=== PATIENT | female | born 1960 | race Caucasian/White ===

== ENCOUNTER 2016-10-03 11:32 | Emergency (ER) | payer MEDICAID, OTHER ==
[2016-10-03] MEDS ORDERED: NORMAL SALINE 1,000 ML IV PRN ×2 (11:49→13:09)
[2016-10-03] MEDS ORDERED: VANCOMYCIN HCL 1 GM in DEXTROSE 5 % IN WATER 250 ML IV ONE ×2 (11:50)
[2016-10-03] MEDS ORDERED: PIPERACILLIN SODIUM/TAZOBACTAM 3.375 GM VIAL IV ONE (11:51)
--- NOTE | 2016-10-03 11:52 | ERNOTE ---
Chest Pain/Cardiac HPI Date of Service: 10/03/16 Chief Complaint: Chest Pain Time Seen by Provider: 10/03/16 11:35 Source: patient Exam Limitations: no limitations Immunizations: IMMUNIZATION HX Immunizations Up to Date Yes History of Influenza Vaccine Yes Hx Pneumococcal Vaccination Yes Allergies/Adverse Reactions: Allergies No Known Allergies Allergy (Verified 10/03/16 11:51) Home Medications: HOME MEDICATIONS Cetirizine HCl [Zyrtec] 10 mg PO HS 08/16/16 [Last Taken Unknown] Cholecalciferol (Vitamin D3) [Vitamin D3] 2,000 unit PO DAILY 08/16/16 [Last Taken Unknown] Lisinopril [Zestril] 20 mg PO DAILY 08/16/16 [Last Taken Unknown] Albuterol Sulfate [Proair Hfa] 1 puff IH QID PRN 10/03/16 [Last Taken Unknown] Amiodarone HCl [Cordarone] 200 mg PO DAILY 10/03/16 [Last Taken Unknown] Aspirin [Aspirin Enteric Coated] 325 mg PO DAILY 10/03/16 [Last Taken Unknown] Atorvastatin Calcium [Lipitor] 80 mg PO HS 10/03/16 [Last Taken Unknown] Carvedilol [Coreg] 12.5 mg PO BID 10/03/16 [Last Taken Unknown] Clopidogrel Bisulfate [Plavix] 75 mg PO DAILY 10/03/16 [Last Taken Unknown] Fluticasone/Salmeterol [Advair Hfa 115-21 Mcg Inhaler] 12 gm IH BID 10/03/16 [ Last Taken Unknown] Hydrochlorothiazide [Hydrodiuril] 25 mg PO DAILY 10/03/16 [Last Taken Unknown] Spironolactone [Aldactone] 25 mg PO DAILY 10/03/16 [Last Taken Unknown] guaiFENesin [Mucinex] 600 mg PO Q12H 10/03/16 [Last Taken Unknown] oxyCODONE HCL/ACETAMINOPHEN [Percocet 5 MG/325 MG] 1 tab PO Q4H PRN 10/03/16 [ Last Taken Unknown] Narrative: pt s/p multiple cardiac arrests and inferior wall IN in Dec presents from the office with fever, hypotension and R upper chest pain. pt sts that the chest pain is worse with movement and is chronic. She denies any substernal chest pain. She has had a coarse productive cough since 09/25 after discharge from [facility]. Sts that the weakness has been increasing since discharge. Denies melena or hematochezia. pt fell yest, 3 lb weight loss per the office in the past 9 days Date (Duration): 09/25/16 Timing: constant Severity/Quality: moderate, sharp Location: other - R chest Chest Pain Radiation: no radiation Activities at Onset: none Nitro Today/Relief: no nitro taken today Associated Symptoms: Present: cough, shortness of breath, fever/chills Prior Chest Pain/Cardiac Workup: Reports: prior chest pain Prior Treatment: Reports: recently seen - today Review of Systems - Review of Systems Constitutional: Present: fever, weakness, malaise EYE: Present: no symptoms reported ENT: Present: no symptoms reported Respiratory: Present: shortness of breath, cough Cardiology: Present: chest pain - R upper chest Gastrointestinal/Abdominal: Present: eating less Genitourinary: Present: no symptoms reported Musculoskeletal: Present: no symptoms reported Skin: Present: no symptoms reported Neurological: Present: no symptoms reported Endocrine: Present: no symptoms reported Hematologic/Lymphatic: Present: no symptoms reported Psych: Present: no symptoms reported All Other Systems: All systems neg except as marked - Patient's Past Medical History Patient History - Medical: Alcohol Abuse, Other Patient History - Cardiac/Respiratory: Coronary Heart Disease, Hypertension Patient History - Cancer: No Hx of Cancer Patient History - Surgical Procedures: Appendectomy, Other - Family History Mother Family History - Medical: , History Unknown Family History - Cardiac/Respiratory: History Unknown Father Family History - Medical: , No pertinent hx Family History - Cardiac/Respiratory: Myocardial Infarction Brother Family History - Medical: No pertinent hx Family History - Cardiac/Respiratory: Myocardial Infarction - Social History Living Situations: home Alcohol Use: heavy Drug Use: none Physical Exam - Physical Exam General Appearance: Present: alert Eye Exam: Normal inspection: bilateral Ears, Nose, Throat: Present: normal ENT inspection Neck: Present: normal inspection Respiratory: Present: chest tenderness - tenderness to the R chest which reproduces the pain, decreased breath sounds, crackles, wheezing Cardiovascular/Chest: Present: regular rate, rhythm Peripheral Pulses: N=norm/S=strong/W=weak/B=bound/A=absent: Radial (R): Normal, Radial (L): Normal, Dorsalis-pedis (R): Normal, Dorsalis-pedis (L): Normal Gastrointestinal/Abdominal: Present: normal bowel sounds Extremity Exam: Present: normal inspection Neurological Exam: Present: alert, oriented Lymphatic Exam: Present: no adenopathy ED Progress - Results and Orders Patient's Lab Results:: I have reviewed the patient's lab results. - Vital Signs Patient's Vital Signs:: I have reviewed the patient's vital signs. - EKG EKG: NSR, other - TWI II, III, avf, V4, V5 - X-Ray X-Ray #1 X-Ray: chest - no new infiltrate Plan - Plan Plan: Dr. Burroughs came to the ed and ordered additional testing. troponin and BNP both elevated. The troponin may be a factor of the renal insufficiency but the BNP elevation is out of proportion to the renal insufficiency. BP and breathing are stable. pt will be transferred to the ed at [facility]. Spoke with Dr. Carrillo in the ed. Fluid stopped. Departure - Departure Clinical Impression: COPD exacerbation, Bronchitis, Dehydration, moderate, Hypotension, Elevated troponin level Chest pain Qualifiers: Chest pain type: chest pain due to myocardial ischemia Qualified Code(s): I20.9 - Angina pectoris, unspecified Disposition: [facility] Condition: Stable
[2016-10-03 12:15] LABS: Hematocrit 31.9 % (37.0-47.0); Hemoglobin 10.1 gm/dL (12.5-16.0); Mean Cell Volume 99.7 fl (78-100); Mean Corpuscular Hemoglobin 31.6 pg (27-31); Mean Corpuscular Hgb Conc 31.7 g/dl (32-36); Mean Platelet Volume 9.7 fl (6.0-9.5); Platelet Count 222 K/mm3 (150-450); Red Cell Distribution Width 15.7 % (11.5-14.0); White Blood Count 10.2 K/mm3 (4.0-10.5)
[2016-10-03] MEDS ORDERED: PIPERACILLIN SODIUM/TAZOBACTAM 3.375 GM in DEXTROSE 5 % IN WATER 100 ML IV ONE ×2 (12:15)
[2016-10-03 12:32] LABS: Albumin * 2.6 gm/dl (3.4-5.0); BUN/Creatinine Ratio 13.2 (9.0-21.6); Bilirubin, Total 0.3 mg/dL (0.0-1.1); Ca. Corrected For Albumin 9.6 mg/dL (8.4-10.2); Calcium * 8.8 mg/dL (7.9-10.9); Carbon Dioxide 19.2 mmol/L (24-32.6); Potassium 4.2 mmol/L (3.4-4.6); Total Protein 6.4 gm/dL (6.2-8.2)
[2016-10-03 12:45] LABS: Total Cells Counted 100
[2016-10-03] MEDS ORDERED: ALBUTEROL SULFATE/IPRATROPIUM 3 ML NEBU IH ONE (12:51)
[2016-10-03 12:55] LABS: Atypical (Reactive) Lymph 1 % (0-2); Band 8 % (0-2.0); Immature Granulocyte 1 (0-1); Lymphocyte 18 % (20-51); Monocyte 8 % (0-9); Neutrophil 64 % (42-75); Neutrophil # 6.5 K/mm3 (1.3-6.0)
[2016-10-03 12:56] LABS: Platelet Estimate Normal (NORMAL); RBC Morphology Normal (NORMAL)
[2016-10-03 12:57] LABS: Dohle Bodies 2+; Toxic Granulation 4+
[2016-10-03 13:32] LABS: CRP 15.7 mg/dL (0.0-0.9); Troponin I 0.172 ng/ml (0.00-0.10)
[2016-10-03 13:42] VITALS: BP 120/49
== END 2016-10-03 14:54 | disposition short-term general hospital (02) ==
LOC: ER 11:32 → UNDOADMOB 13:18 → MS 13:18 → ER 14:54
DX: J44.1 Chronic obstructive pulmonary disease with (acute) exacerbation (principal); J40 Bronchitis, not specified as acute or chronic; E86.0 Dehydration; I95.9 Hypotension, unspecified; R79.89 Other specified abnormal findings of blood chemistry; I20.9 Angina pectoris, unspecified

== ENCOUNTER 2017-05-31 09:55 | Emergency (ER) | payer OTHER ==
[2017-05-31 10:14] VITALS: BP 184/64
--- NOTE | 2017-05-31 11:46 | ERNOTE ---
Trauma/Assault HPI - Narrative Date of Service: 05/31/17 - General Stated Complaint: FALL Time Seen by Provider: 05/31/17 10:30 Source: patient Exam Limitations: no limitations - Immun/Allergies/Home Medications Immunizations: IMMUNIZATION HX Immunizations Up to Date Yes History of Influenza Vaccine Yes Hx Pneumococcal Vaccination No Allergies/Adverse Reactions: Allergies No Known Allergies Allergy (Verified 05/31/17 10:14) Home Medications: HOME MEDICATIONS Cetirizine HCl [Zyrtec] 10 mg PO HS 08/16/16 [Last Taken Unknown] Cholecalciferol (Vitamin D3) [Vitamin D3] 2,000 unit PO DAILY 08/16/16 [Last Taken Unknown] Atorvastatin Calcium [Lipitor] 80 mg PO HS 10/03/16 [Last Taken Unknown] Carvedilol [Coreg] 3.125 mg PO BID 10/03/16 [Last Taken Unknown] Clopidogrel Bisulfate [Plavix] 75 mg PO DAILY 10/03/16 [Last Taken Unknown] Aspirin 81 mg PO DAILY 05/31/17 [Last Taken Unknown] HYDROcodone/ACETAMINOPHEN [Union 5-325] 1 tab PO Q4H PRN #40 tab 05/31/17 [Last Taken Unknown] Levothyroxine Sodium [Tirosint] 50 mcg PO DAILY 05/31/17 [Last Taken Unknown] Lisinopril 5 mg PO HS 05/31/17 [Last Taken Unknown] Sertraline HCl [Zoloft] 50 mg PO DAILY 05/31/17 [Last Taken Unknown] - History of Present Illness Narrative: patient lost balance and fell on face and right wrist on friday Location Occurred: Reports: street Pain Location: Reports: head, face, upper extremity Method of Injury: Reports: fall Severity: moderate Modifying Factors - (Improves): Reports: rest Modifying Factors - (Worsens): Reports: movement Loss of Consciousness: Reports: no loss of consciousness Associated Symptoms - Trauma: Reports: denies symptoms Review of Systems - Review of Systems Constitutional: Present: no symptoms reported, See HPI EYE: Present: no symptoms reported ENT: Present: See HPI Respiratory: Present: no symptoms reported Cardiology: Present: no symptoms reported Gastrointestinal/Abdominal: Present: no symptoms reported Genitourinary: Present: no symptoms reported Musculoskeletal: Present: joint pain Skin: Present: no symptoms reported Neurological: Present: no symptoms reported Endocrine: Present: no symptoms reported Hematologic/Lymphatic: Present: no symptoms reported Psych: Present: no symptoms reported All Other Systems: All systems neg except as marked - Patient's Past Medical History Patient History - Medical: Alcohol Abuse, Other Patient History - Cardiac/Respiratory: Hypertension, Hyperlipidemia, Myocardial Infarction Patient History - Cancer: No Hx of Cancer Patient History - Surgical Procedures: Appendectomy, Cardiac stent, Other Patient History - Other: None - Family History Mother Family History - Medical: , History Unknown Family History - Cardiac/Respiratory: History Unknown Father Family History - Medical: , No pertinent hx Family History - Cardiac/Respiratory: Myocardial Infarction Brother Family History - Medical: No pertinent hx Family History - Cardiac/Respiratory: Myocardial Infarction - Social History Living Situations: home Abuse History: No History of abuse Psych History: No pertinent hx Smoking Status: Current every day smoker Have you smoked in the past 12 months: Yes Initiate information on Smoking Cessation: No Alcohol Use: heavy Drug Use: none - Immunizations Immunizations Up to Date: Yes Hx Pneumococcal Vaccination: No History of Influenza Vaccine: Yes Physical Exam - Physical Exam General Appearance: Present: alert, moderate distress Head Exam: Present: contusions, ecchymosis, swelling, tenderness Eye Exam: Normal inspection: bilateral, PERRL: bilateral, EOMI: bilateral Ears, Nose, Throat: Present: normal ENT inspection Neck: Present: normal inspection, nontender Respiratory: Present: no respiratory distress, normal breath sounds, no accessory muscle use, chest nontender, lungs clear Cardiovascular/Chest: Present: regular rate, rhythm, no murmur, normal peripheral pulses Peripheral Pulses: N=norm/S=strong/W=weak/B=bound/A=absent: Carotid (R): Normal , Carotid (L): Normal, Radial (R): Normal, Radial (L): Normal, Femoral (R): Normal, Femoral (L): Normal, Dorsalis-pedis (R): Normal, Dorsalis-pedis (L): Normal Gastrointestinal/Abdominal: Present: normal bowel sounds, nontender, nondistended, soft, no organomegaly Back Exam: Present: normal inspection, normal range of motion, no CVA tenderness , no vertebral tenderness Extremity Exam: Present: normal inspection, normal range of motion, no edema Neurological Exam: Present: alert, oriented, normal mood/affect, no motor/ sensory deficits DTR: N=norm/NB=norm/brisk/A=abs/DD=dull/dimin/HC=hyperactive: Bicep (R): Normal , Bicep (L): Normal, Tricep (R): Normal, Tricep (L): Normal, Knee (R): Normal, Knee (L): Normal, Ankle (R): Normal, Ankle (L): Normal Skin Exam: Present: normal color, warm/dry Lymphatic Exam: Present: no adenopathy - C-Spine cleared by: Neg history & exam ED Progress - Vital Signs Vital Signs: Vital Signs 05/31/17 10:10 Temperature 36.2 C L Pulse Rate 60 Respiratory 14 Rate Blood Pressure 184/64 O2 Sat by Pulse 98 Oximetry - X-Ray X-Ray #1 X-Ray: wrist - distal radius fracture with angulation, ulnar styloid fracture - CT/Ultrasound CT/Ultrasound Narrative: ct of head and neck reveal no abnormality - Progress/Reassessment Chief Complaint: Fall Procedures Date and Time: ocl placed patient tolerated it well Departure Clinical Impression: Fracture of wrist - Departure Disposition: Home self-care Condition: Fair Instructions: Colles Fracture Additional Instructions: call dr hernandez office on friday for appointment Referrals: Irma Burroughs MD [Primary Care Provider] - Prescriptions: HYDROcodone/ACETAMINOPHEN [Union 5-325] 1 tab PO Q4H PRN #40 tab PRN Reason: Pain
[2017-05-31] MEDS ORDERED: DIPHTH,PERTUSS(ACELL),TET VAC 0.5 ML VIAL IM ONE ×2 (11:48→11:49)
== END 2017-05-31 11:59 | disposition home or self-care (01) ==
LOC: ER 09:55
PROC: 2W3CX1Z Immobilization of Right Lower Arm using Splint (ICD-10-PCS; principal; 2017-05-31)
DX: M84.433A Pathological fracture, right radius, initial encounter for fracture (principal); M84.431A Pathological fracture, right ulna, initial encounter for fracture; W18.30XA Fall on same level, unspecified, initial encounter; Y93.9 Activity, unspecified; Y92.410 Unspecified street and highway as the place of occurrence of the external cause; Y99.9 Unspecified external cause status; I10 Essential (primary) hypertension; E78.5 Hyperlipidemia, unspecified

== ENCOUNTER 2020-03-12 08:38 | Inpatient (IN) ==
[2020-03-12] MEDS ORDERED: PANTOPRAZOLE SODIUM 40 MG/100 ML PIGGYBACK IV ONE (08:47)
[2020-03-12 09:05] LABS: Mean Cell Volume 109.1 fl (78-100); Mean Corpuscular Hemoglobin 34.4 pg (27-31); Mean Corpuscular Hgb Conc 31.5 g/dl (32-36); Mean Platelet Volume 10.3 fl (8-12.5); NRBC# 0.1 k/mm3 (0-1); Neutrophil # 6.1 K/mm3 (1.3-6.0); Neutrophil % 68.6 % (42-75.0); Platelet Count 119 K/mm3 (150-450); Red Blood Count 1.54 M/mm3 (4.2-5.4); White Blood Count 8.9 K/mm3 (4.0-10.5)
[2020-03-12 09:08] LABS: Hemoglobin 5.3 gm/dL (12.5-16.0)
[2020-03-12 09:09] LABS: Hematocrit 16.8 % (37.0-47.0)
[2020-03-12 09:14] LABS: Prothrombin Time (Patient) 13.8 Seconds (9.1-10.7)
--- NOTE | 2020-03-12 09:14 | ERNOTE ---
GI Bleeding/Rectal Pain ER Presenting Symptoms: dark/tarry stools Time Seen by Provider: 03/12/20 08:41 Source: patient Exam Limitations: no limitations Immunizations: IMMUNIZATION HX Immunizations Up to Date Yes History of Influenza Vaccine Yes Hx Pneumococcal Vaccination No Allergies/Adverse Reactions: Allergies No Known Allergies Allergy (Verified 05/03/19 20:14) Home Medications: HOME MEDICATIONS Atorvastatin Calcium [Lipitor] 80 mg PO HS 10/03/16 [Last Taken Unknown] Carvedilol [Coreg] 3.125 mg PO BID 10/03/16 [Last Taken Unknown] Clopidogrel Bisulfate [Plavix] 75 mg PO DAILY 10/03/16 [Last Taken Unknown] Aspirin 81 mg PO DAILY 05/31/17 [Last Taken Unknown] furosemide 20 mg tablet 20 mg PO DAILY 07/27/18 [Last Taken Unknown] lisinopril 10 mg tablet 10 mg PO DAILY 07/31/18 [Last Taken Unknown] Denosumab [Prolia] 60 mg SC Q180D #1 disp.syrin 08/06/18 [Last Taken Unknown] cholecalciferol (vitamin D3) 50 mcg (2,000 unit) tablet 2,000 unit PO DAILY #0.1 tab 08/07/18 [Last Taken Unknown] albuterol sulfate 90 mcg/actuation aerosol inhaler 2 puff IH Q6H PRN #8.5 g 12/22/18 [Last Taken Unknown] levothyroxine 25 mcg tablet See Rx Instructions .ROUTE .COMPLEX #30 tablet 10/25/19 [Last Taken Unknown] sertraline 50 mg tablet See Rx Instructions .ROUTE .COMPLEX #30 tablet 10/25/19 [Last Taken Unknown] Narrative: Patient states that she has been having bloody diarrhea for about a 2 weeks, stools are black, denies any clots, yesterday she went to the bathroom 20 times. She is also been vomiting multiple times a day for about 3 to 4 days, denies any blood in the vomit, she denies any abdominal pain. Patient past medical history is significant for an DE with cardiac arrest in 2015, she was treated with a stent and has been on aspirin and Plavix since. She states that she also started menstruating again after being 15 years postmenopausal, states that she is menstruating like she was having a period. She has not seen her PCP in about a year but states that she is continuing to take her medications. Today she called EMS as she has become increasingly lightheaded and dizzy Timing: constant Nausea/Vomiting: Present: clear Abdominal Pain: Present: none Associated Symptoms: Reports: black stools, tarry stools, diarrhea Prior Treament: Denies: recently seen, similar symptoms before Review of Systems - Review of Systems Constitutional: Present: weakness, fatigue, malaise, weight loss - lost 15+kg per chart. Absent: recent illness, fever, chills ENT: Absent: nose congestion, sore throat Respiratory: Absent: shortness of breath, cough Cardiology: Absent: chest pain Gastrointestinal/Abdominal: Present: See HPI, nausea, vomiting, diarrhea Genitourinary: Absent: frequency, dysuria Musculoskeletal: Absent: back pain Neurological: Present: numbness - right leg for months Medical History (Last Reviewed 03/12/20 @ 09:12 by Bhavani Salcido MD) Cough (Acute) Newly recognized heart murmur (Acute) Alcoholism (Chronic) claims to drink about 3-4 beers per week. Current every day smoker (Chronic) Smokes 1/2 pack per day Hypothyroidism (acquired) (Chronic) Peripheral arterial disease (Chronic) Having intermittent claudication with walking Osteoporosis of forearm (Chronic) Has had a fracture of the R. humerus and a fracture of the R. forearm Ischemic cardiomyopathy (Resolved) Onset Date: Unknown Hypothyroidism (Chronic) Onset Date: Unknown Hypertension (Chronic) Onset Date: Unknown Fracture, humerus closed (Resolved) Onset Date: Unknown Distal radial fracture (Resolved) Onset Date: Unknown CAD (coronary artery disease) (Chronic) Onset Date: Unknown Carotid stenosis (Chronic) Onset Date: Unknown Hypertension (Acute) H/O echocardiogram ef 40-45% 10/04/2016 Surgical History: Surgical History (Last Reviewed 03/12/20 @ 09:12 by Bhavani Salcido MD) History of cardioversion (Resolved) Onset Date: Unknown H/O cardiac catheterization (Resolved) Onset Date: Unknown History of appendectomy (Resolved) Onset Date: Unknown History of bilateral oophorectomy Onset Date: Unknown Hx of heart artery stent Onset Date: Unknown S/P ORIF (open reduction internal fixation) fracture Onset Date: Unknown Family History: Family History (Last Reviewed 03/12/20 @ 09:14 by Ping Malhotra RN) Father , age 43 Myocardial infarction Mother unknown Brother , age 60 Myocardial infarction Social History: (Last Updated 03/12/20 @ 09:13 by Bhavani Salcido MD) Social History: Marital status: Single current occupational status: unemployed Highest education level completed: high school graduate Service: No Tobacco: Smoking Status: Current every day smoker Smoking cigarettes per day: 10 Alcohol: alcohol intake: current Alcohol type: beer alcohol intake frequency: 0-2 drinks per day details: 12 pack per week Substance Use: substance use type: does not use Dietary Habits: caffeine: Yes Physical Exam - Physical Exam General Appearance: Present: wd/wn, alert, no apparent distress, thin Head Exam: Present: normal inspection Eye Exam: Normal inspection: bilateral, PERRL: bilateral Ears, Nose, Throat: Present: normal pharynx, dry mucous membranes Respiratory: Present: no respiratory distress, no accessory muscle use, decreased breath sounds, wheezing - occoasional Cardiovascular/Chest: Present: regular rate, rhythm Gastrointestinal/Abdominal: Present: normal bowel sounds, nondistended, soft, tenderness - minimal epigastric, other - suprapubic fullness Rectal Exam: Present: nontender, normal rectal tone, black stool Pelvic Exam: Present: other - patient is postmenopausal and I was only able to insert one finger for bimanual exam, limited exam of utererus. Absent: active bleeding, discharge Extremity Exam: Present: normal inspection Neurological Exam: Present: alert, oriented, normal mood/affect Skin Exam: Present: warm/dry, pallor Progress - Results and Orders Patient's Lab Results:: I have reviewed the patient's lab results. - Vital Signs Patient's Vital Signs:: I have reviewed the patient's vital signs. Vital Signs: Vital Signs 03/12/20 08:53 Temperature 36.0 C Pulse Rate 81 Respiratory Rate 28 H Blood Pressure 124/63 O2 Sat by Pulse Oximetry 100 - X-Ray X-Ray #1 X-Ray: abdomen - non specific bowel gas pattern Interpretation: Interp. by me, Reviewed by me - CT/Ultrasound CT/Ultrasound Narrative: CT abdomen/pelvis: IMPRESSION:Mild diffuse colonic wall thickening; question colitis. No pneumatosis or portal venous gas. No free air. No abscess. No bowel obstruction. Also, question left pyelonephritis. Additional findings and comments are as above. - Progress/Reassessment Chief Complaint: GI Bleed Progress Note-Subjective: 03/12/20 10:42 patient tolerating po contrast 03/12/20 12:[address] result with patient offered admission, patient agreed 03/12/20 12:27 discussed with faith Rodriguez to to admit for lower GI bleed will assess after second unit of RBC for need of further transfusion Departure Clinical Impression: GI bleed Qualifiers: GI bleed type/associated pathology: unspecified gastrointestinal hemorrhage type Qualified Code(s): K92.2 - Gastrointestinal hemorrhage, unspecified - Departure Disposition: Still a patient Condition: Stable Referrals: Romeo Damon DO [Primary Care Provider] -
[2020-03-12 09:17] LABS: Albumin * 3.1 gm/dl (3.4-5.0); Anion Gap 24.9 mmol/L (6.8-13.8); BUN/Creatinine Ratio 17.3 (9.0-21.6); Bilirubin, Total 0.3 mg/dL (0.0-1.1); Ca. Corrected For Albumin 8.5 mg/dL (8.4-10.2); Calcium * 8.1 mg/dL (7.9-10.9); Carbon Dioxide 16.3 mmol/L (24-32.6); Potassium 4.2 mmol/L (3.4-4.6); Total Protein 6.1 gm/dL (6.2-8.2)
[2020-03-12] MEDS ORDERED: NORMAL SALINE 1,000 ML IV ONE (09:17)
[2020-03-12 09:18] LABS: INR 1.41 INR (0.92-1.08); Partial Thrombolplastin Time 21.3 Seconds (24-32)
[2020-03-12] MEDS ORDERED: ONDANSETRON HCL/PF 2 MG/ML VIAL ONE (09:22)
[2020-03-12] MEDS ORDERED: ONDANSETRON HCL/PF 2 MG/ML VIAL IV ONE (09:22)
[2020-03-12 09:41] LABS: Urine Appearance Clear (CLEAR); Urine Bilirubin Negative (NEGATIVE); Urine Blood Negative /ul (NEGATIVE); Urine Color Yellow; Urine Ketone Negative (NEGATIVE); Urine Protein Negative (NEGATIVE); Urine pH 5.5 pH (5.0-7.0)
[2020-03-12 09:42] LABS: Urine Bacteria None Seen; Urine Nitrite Negative (NEGATIVE); Urine RBC None Seen /hpf (0-5); Urine Urobilinogen Normal (NORMAL); Urine WBC None Seen /hpf (0-5)
[2020-03-12] MEDS ORDERED: DIATRIZOATE MEGLUMINE, SODIUM 30 ML BTL PO ONE (09:54)
[2020-03-12] MEDS ORDERED: HYDROmorphone HCL 1 MG/ML DISP.SYRIN IV ONE (11:55)
[2020-03-12] MEDS ORDERED: ACETAMINOPHEN 325 MG TABLET PO PRN (14:44)
[2020-03-12] MEDS ORDERED: HYDROmorphone HCL 1 MG/ML DISP.SYRIN IV PRN (14:45)
[2020-03-12] MEDS ORDERED: ONDANSETRON HCL/PF 2 MG/ML VIAL IV PRN (14:50)
[2020-03-12] MEDS ORDERED: ALBUTEROL SULFATE 2.5 MG/0.5 ML VIAL.NEB IH PRN (14:50)
[2020-03-12] MEDS ORDERED: METHYLPREDNISOLONE SOD SUCC/PF 40 MG/ML VIAL IV SCH (15:00)
[2020-03-12] MEDS ORDERED: CARVEDILOL 12.5 MG TABLET PO SCH (15:00)
[2020-03-12] MEDS ORDERED: NICOTINE 14 MG PATC TD SCH (15:00)
[2020-03-12] MEDS: PANTOPRAZOLE SODIUM 40 MG in NORMAL SALINE 100 ML IV SCH (15:25)
[2020-03-12] MEDS ORDERED: LORazepam 1 MG TABLET PO PRN (15:30)
[2020-03-12] MEDS: CARVEDILOL 3.125 MG TABLET PO SCH ×2 (15:32→20:43)
[2020-03-12] MEDS: LEVOTHYROXINE SODIUM 25 MCG TABLET PO SCH (15:32)
[2020-03-12] MEDS: SERTRALINE HCL 50 MG TABLET PO SCH (15:32)
[2020-03-12] MEDS: METHYLPREDNISOLONE SOD SUCC/PF 125 MG/2 ML VIAL IV SCH ×2 (15:33→20:44)
--- NOTE | 2020-03-12 15:35 | HP ---
Chief Complaint - Chief Complaint Date of Service: 03/12/20 Time of Service: 15:07 Chief Complaint: I have diarrhea, nausea, and vomiting History of Present Illness: 59-year-old female with past medical history of alcoholism, coronary artery disease, with old NM with stent placement, nicotine dependence, hypertension, hypothyroidism, peripheral artery disease, osteoporosis, was evaluated in the ER due to recurrent diarrhea and melena of 2 weeks duration accompanied by nausea and vomiting that started 2 to 3 days ago. Patient is currently on aspirin and Plavix for her coronary artery disease and she reports 2 weeks ago she started having dark watery diarrhea, she then started noticing fresh red blood coming from her rectum which she initially thought was a menstrual bleed. However the patient has been postmenopausal for more than 15 years so rectal bleeding is more likely. Subsequently the patient weak and pale and lack energy. She 3 days ago she developed intense nausea and started vomiting. This morning her symptoms became so severe that she decided to come to the ER. Upon questioning the patient admits to consuming alcohol and is also a current smoker of half a pack of cigarettes a day. Labs done in the ER demonstrated elevated liver enzymes a positive stool occult and elevated alcohol levels. She also has a hemoglobin of 5.3 and is extremely weak and pale. Abdominal CT was obtained and it showed diffuse colonic inflammation indicating a colitis. On observation the patient appears disheveled and malnourished she also has poor hygiene. Medical History (Last Reviewed 03/12/20 @ 14:22 by Jennifer Diaz RN) Cough (Acute) Newly recognized heart murmur (Acute) Alcoholism (Chronic) claims to drink about 3-4 beers per week. Current every day smoker (Chronic) Smokes 1/2 pack per day Hypothyroidism (acquired) (Chronic) Peripheral arterial disease (Chronic) Having intermittent claudication with walking Osteoporosis of forearm (Chronic) Has had a fracture of the R. humerus and a fracture of the R. forearm Ischemic cardiomyopathy (Resolved) Onset Date: Unknown Hypothyroidism (Chronic) Onset Date: Unknown Hypertension (Chronic) Onset Date: Unknown Fracture, humerus closed (Resolved) Onset Date: Unknown Distal radial fracture (Resolved) Onset Date: Unknown CAD (coronary artery disease) (Chronic) Onset Date: Unknown Carotid stenosis (Chronic) Onset Date: Unknown Hypertension (Acute) H/O echocardiogram ef 40-45% 10/04/2016 Surgical History: Surgical History (Last Reviewed 03/12/20 @ 14:22 by Jennifer Diaz RN) History of cardioversion (Resolved) Onset Date: Unknown H/O cardiac catheterization (Resolved) Onset Date: Unknown History of appendectomy (Resolved) Onset Date: Unknown History of bilateral oophorectomy Onset Date: Unknown Hx of heart artery stent Onset Date: Unknown S/P ORIF (open reduction internal fixation) fracture Onset Date: Unknown Family History: Family History (Last Reviewed 03/12/20 @ 14:22 by Jennifer Diaz RN) Father , age 43 Myocardial infarction Mother unknown Brother , age 60 Myocardial infarction Social History: (Last Reviewed 03/12/20 @ 14:22 by Jennifer Diaz RN) Social History: Marital status: Single current occupational status: unemployed Highest education level completed: high school graduate Service: No Tobacco: Smoking Status: Current every day smoker Smoking cigarettes per day: 10 Alcohol: alcohol intake: current Alcohol type: beer alcohol intake frequency: 0-2 drinks per day details: 12 pack per week Substance Use: substance use type: does not use Dietary Habits: caffeine: Yes Peds Patient Hx - Developmental: No Pertinent Hx Peds Patient Hx - Medical: No Pertinent Hx Peds Patient Hx - Cardiac/Respiratory: No Pertinent Hx Peds Patient Hx - Surgical: No Surgical History Patient History - Cancer: No Hx of Cancer Review Of Systems (GEN) - Review of Systems Generalized/Overall Review: Present: Weakness EENTM: Present: No Symptoms Reported Respiratory: Present: No Symptoms Reported Cardiac: Present: No Symptoms Reported Abdominal: Present: Nausea, Vomiting, Diarrhea, Melena, Bright blood from rectum Genitourinary: Present: No Symptoms Reported Musculoskeletal: Present: Other - Numbness and tingling of right lower extremity. Neurological: Present: Numbness, Tingling, Pre-existing Deficit Skin: Present: Change in Color Endocrine: Present: No Symptoms Reported Immunizations: IMMUNIZATION HX Immunizations Up to Date Yes History of Influenza Vaccine Yes Hx Pneumococcal Vaccination No Allergies/Adverse Reactions: Allergies Allergy/AdvReac Type Severity Reaction Status Date / Time No Known Allergies Allergy Verified 03/12/20 14:22 Home Medications: HOME MEDICATIONS Atorvastatin Calcium [Lipitor] 80 mg PO HS 10/03/16 [Last Taken Unknown] Carvedilol [Coreg] 3.125 mg PO BID 10/03/16 [Last Taken Unknown] Clopidogrel Bisulfate [Plavix] 75 mg PO DAILY 10/03/16 [Last Taken Unknown] Aspirin 81 mg PO DAILY 05/31/17 [Last Taken Unknown] furosemide 20 mg tablet 20 mg PO DAILY 07/27/18 [Last Taken Unknown] lisinopril 10 mg tablet 10 mg PO DAILY 07/31/18 [Last Taken Unknown] Denosumab [Prolia] 60 mg SC Q180D #1 disp.syrin 08/06/18 [Last Taken Unknown] cholecalciferol (vitamin D3) 50 mcg (2,000 unit) tablet 2,000 unit PO DAILY #0.1 tab 08/07/18 [Last Taken Unknown] albuterol sulfate 90 mcg/actuation aerosol inhaler 2 puff IH Q6H PRN #8.5 g 12/22/18 [Last Taken Unknown] levothyroxine 25 mcg tablet See Rx Instructions .ROUTE .COMPLEX #30 tablet 10/25/19 [Last Taken Unknown] sertraline 50 mg tablet See Rx Instructions .ROUTE .COMPLEX #30 tablet 10/25/19 [Last Taken Unknown] Exam - Exam Vital Signs: Vital Signs - Last Taken Temp 36.7 C 03/12/20 14:22 Pulse 71 03/12/20 14:22 Resp 18 03/12/20 14:22 BP 114/67 03/12/20 14:22 Pulse Ox 100 03/12/20 14:22 Constitutional: Present: Alert, Oriented x3, Cooperative, Well developed, No distress, Other - Patient appears malnourished, Elderly, Thin and frail ENT Exam: Present: normal ENT inspection, hearing grossly normal, pharynx normal, TMs normal Eye Exam: bilateral eye: normal inspection, PERRL, EOMI Neck: Present: non-tender, full range of motion, supple, normal inspection, trachea midline Back Exam: Present: normal inspection, no CVA tenderness, no vertebral tenderness Breasts: Present: Exam deferred Respiratory: Present: chest non-tender, lungs clear, normal breath sounds, no respiratory distress Cardiovascular/Chest: Present: normal peripheral pulses, regular rate, rhythm, no chest tenderness, no edema, no gallop, no JVD, no murmur, no rub Peripheral Pulses: carotid (R): 3+, carotid (L): 3+, femoral (R): 3+, femoral (L): 3+, dorsalis-pedis (R): 2+, dorsalis-pedis (L): 0 Abdomen: Present: Normal bowel sounds, soft, nontender, nondistended, no rebound tenderness, no hepatospenomegaly, no masses /Rectal: Present: Exam deferred Extremity: Present: normal range of motion, non-tender, no pedal edema, no calf tenderness, pelvis stable, other - Right lower extremity is cold to touch but pulses are intact Skin Exam: Present: pallor Lymphatic: Present: no adenopathy Neurologic: Present: die try out worker stamping II-XII nml as tested, no motor/sensory deficits, alert, oriented x 3, depressed affect Appearance: Present: appropriate appearance, appropriate insight, disheveled Eye contact: Present: cooperative, good eye contact, normal speech Thoughts: Present: normal thought pattern, no apparent hallucination Diagnostic Studies: Abnormal Lab Results 03/12/20 03/12/20 03/12/20 Range/Units 08:55 08:55 08:55 RBC 1.54 L (4.2-5.4) M/mm3 Hgb 5.3 L* (12.5-16.0) gm/dL Hct 16.8 L* (37.0-47.0) % MCV 109.1 H (78-100) fl MCH 34.4 H (27-31) pg MCHC 31.5 L (32-36) g/dl RDW 17.0 H (11.5-14.0) % Plt Count 119 L (150-450) K/mm3 Lymphocytes % 19.4 L (20-51) % Monocytes % 11.6 H (0.0-9) % Neutrophils # 6.1 H (1.3-6.0) K/mm3 PT 13.8 H (9.1-10.7) Seconds INR (Anticoag Therapy) 1.41 H (0.92-1.08) INR PTT ([place]) 21.3 L (24-32) Seconds Chloride 96 L (97-106) mmol/L Carbon Dioxide 16.3 L (24-32.6) mmol/L Anion Gap 24.9 H (6.8-13.8) mmol/L BUN 31 H (3-23) mg/dL Creatinine 1.79 H (0.4-1.4) mg/dL Est GFR (Non-Af Amer) 31 L D (60-130) mL/min Random Glucose 151 H (70-110) mg/dL AST 617 H (0-48) U/L ALT 241 H (19-67) U/L Total Protein 6.1 L (6.2-8.2) gm/dL Albumin 3.1 L (3.4-5.0) gm/dl Stool Occult Blood Ethyl Alcohol (0.0-10.0) mg/dL Crossmatch 03/12/20 03/12/20 03/12/20 Range/Units 08:55 09:20 14:13 RBC (4.2-5.4) M/mm3 Hgb (12.5-16.0) gm/dL Hct (37.0-47.0) % MCV (78-100) fl MCH (27-31) pg MCHC (32-36) g/dl RDW (11.5-14.0) % Plt Count (150-450) K/mm3 Lymphocytes % (20-51) % Monocytes % (0.0-9) % Neutrophils # (1.3-6.0) K/mm3 PT (9.1-10.7) Seconds INR (Anticoag Therapy) (0.92-1.08) INR PTT ([place]) (24-32) Seconds Chloride (97-106) mmol/L Carbon Dioxide (24-32.6) mmol/L Anion Gap (6.8-13.8) mmol/L BUN (3-23) mg/dL Creatinine (0.4-1.4) mg/dL Est GFR (Non-Af Amer) (60-130) mL/min Random Glucose (70-110) mg/dL AST (0-48) U/L ALT (19-67) U/L Total Protein (6.2-8.2) gm/dL Albumin (3.4-5.0) gm/dl Stool Occult Blood Positive H Ethyl Alcohol 11.0 H (0.0-10.0) mg/dL Crossmatch See Detail Laboratory Results WBC 8.9 K/mm3 (4.0-10.5) 03/12/20 08:55 RBC 1.54 M/mm3 (4.2-5.4) L 03/12/20 08:55 Hgb 5.3 gm/dL (12.5-16.0) L* 03/12/20 08:55 Hct 16.8 % (37.0-47.0) L* 03/12/20 08:55 MCV 109.1 fl (78-100) H 03/12/20 08:55 MCH 34.4 pg (27-31) H 03/12/20 08:55 MCHC 31.5 g/dl (32-36) L 03/12/20 08:55 RDW 17.0 % (11.5-14.0) H 03/12/20 08:55 Plt Count 119 K/mm3 (150-450) L 03/12/20 08:55 MPV 10.3 fl (8-12.5) 03/12/20 08:55 Immature Gran % (Auto) 0.30 % (0.001-0.429) 03/12/20 08:55 Immature Gran # (Auto) 0.03 K/mm3 (0.000-0.0310) 03/12/20 08:55 Neutrophils % 68.6 % (42-75.0) 03/12/20 08:55 Lymphocytes % 19.4 % (20-51) L 03/12/20 08:55 Monocytes % 11.6 % (0.0-9) H 03/12/20 08:55 Eosinophils % 0.0 % (0.0-3.0) 03/12/20 08:55 Basophils % 0.1 % (0.0-1.0) 03/12/20 08:55 Nucleated RBC % 0.1 k/mm3 (0-1) 03/12/20 08:55 Neutrophils # 6.1 K/mm3 (1.3-6.0) H 03/12/20 08:55 Lymphocytes # 1.73 k/mm3 (1.5-3.5) 03/12/20 08:55 Monocytes # 1.0 k/mm3 (0.0-1.0) 03/12/20 08:55 Eosinophils # 0.0 k/mm3 (0.0-0.7) 03/12/20 08:55 Absolute Basophils 0.0 k/mm3 (0.0-0.1) 03/12/20 08:55 PT 13.8 Seconds (9.1-10.7) H 03/12/20 08:55 INR (Anticoag Therapy) 1.41 INR (0.92-1.08) H 03/12/20 08:55 PTT ([place]) 21.3 Seconds (24-32) L 03/12/20 08:55 Sodium 133 mmol/L (132-142) 03/12/20 08:55 Plasma Sodium 134 mmol/L (130-142) 03/12/20 08:55 Potassium 4.2 mmol/L (3.4-4.6) 03/12/20 08:55 Chloride 96 mmol/L (97-106) L 03/12/20 08:55 Carbon Dioxide 16.3 mmol/L (24-32.6) L 03/12/20 08:55 Anion Gap 24.9 mmol/L (6.8-13.8) H 03/12/20 08:55 BUN 31 mg/dL (3-23) H 03/12/20 08:55 Creatinine 1.79 mg/dL (0.4-1.4) H 03/12/20 08:55 Est GFR (Non-Af Amer) 31 mL/min (60-130) L D 03/12/20 08:55 BUN/Creatinine Ratio 17.3 (9.0-21.6) 03/12/20 08:55 Random Glucose 151 mg/dL (70-110) H 03/12/20 08:55 Calcium 8.1 mg/dL (7.9-10.9) 03/12/20 08:55 Calcium Adj for Albumin 8.5 mg/dL (8.4-10.2) 03/12/20 08:55 Total Bilirubin 0.3 mg/dL (0.0-1.1) 03/12/20 08:55 AST 617 U/L (0-48) H 03/12/20 08:55 ALT 241 U/L (19-67) H 03/12/20 08:55 Alkaline Phosphatase 76 U/L (50-170) 03/12/20 08:55 Total Protein 6.1 gm/dL (6.2-8.2) L 03/12/20 08:55 Albumin 3.1 gm/dl (3.4-5.0) L 03/12/20 08:55 Amylase 47 U/L (25-115) 03/12/20 08:55 Lipase 190 U/L (73-393) 03/12/20 08:55 Urine Color Yellow 03/12/20 08:46 Urine Appearance Clear (CLEAR) 03/12/20 08:46 Urine pH 5.5 pH (5.0-7.0) 03/12/20 08:46 Ur Specific [place] 1.020 SP.GR. (1.005-1.010) 03/12/20 08:46 Urine Protein Negative mg/dL (NEGATIVE) 03/12/20 08:46 Urine Glucose (UA) Negative mg/dL (NEGATIVE) 03/12/20 08:46 Urine Ketones Negative mg/dL (NEGATIVE) 03/12/20 08:46 Urine Blood Negative /ul (NEGATIVE) 03/12/20 08:46 Urine Nitrate Negative (NEGATIVE) 03/12/20 08:46 Urine Bilirubin Negative mg/dl (NEGATIVE) 03/12/20 08:46 Urine Urobilinogen Normal EU/dl (NORMAL) 03/12/20 08:46 Ur Leukocyte Esterase Negative /ul (NEGATIVE) 03/12/20 08:46 Urine RBC None seen /hpf (0-5) 03/12/20 08:46 Urine WBC None seen /hpf (0-5) 03/12/20 08:46 Ur Epithelial Cells None seen /hpf (0-5) 03/12/20 08:46 Urine Bacteria None seen (NONE) 03/12/20 08:46 Urine Culture Comments No culture indicated 03/12/20 08:46 Stool Occult Blood Positive H 03/12/20 14:13 Ethyl Alcohol 11.0 mg/dL (0.0-10.0) H 03/12/20 09:20 Blood Type A Negative 03/12/20 08:55 Antibody Screen Negative 03/12/20 08:55 Crossmatch See Detail 03/12/20 08:55 Assessment/Plan - Narrative Narrative: Patient was evaluated and medical chart was reviewed and decision to admit for diagnosis of lower GI bleeding due to acute colitis, dehydration, melena, hemorrhagic anemia was made. Patient is currently receiving 2 units of PRBCs to address her anemia, we will follow-up with a post transfusion H&H to evaluate hemoglobin levels. Currently she still shows evidence of active rectal bleeding with fresh red blood possibly due to colitis, therefore we will treat her with IV metronidazole and IV steroids to address the inflammation. Patient is a current smoker therefore we will order nicotine patches to be applied daily and cover her for alcohol withdrawal during the hospitalization. - Assessment/Plan (1) Lower GI bleed Problem: Acute (2) Alcoholism Problem: Chronic (3) Current every day smoker Problem: Chronic (4) Hypothyroidism (acquired) Problem: Chronic (5) Peripheral arterial disease Problem: Chronic (6) CAD (coronary artery disease) Problem: Chronic Qualifiers: (7) Elevated ETOH level Problem: Acute Qualifiers: (8) Nicotine addiction Problem: Chronic (9) Dehydration, moderate Problem: Acute (10) Anemia Problem: Acute
[2020-03-12] MEDS: CIPROFLOXACIN IN 5 % DEXTROSE 200 MG/100 ML BAG IV SCH (15:57)
[2020-03-12] MEDS: metroNIDAZOLE/SODIUM CHLORIDE 500 MG/100 ML BAG IV SCH ×2 (17:03→23:05)
[2020-03-12 20:20] LABS: Hematocrit 28.2 % (37.0-47.0); Hemoglobin 9.2 gm/dL (12.5-16.0)
[2020-03-12] MEDS ORDERED: ROSUVASTATIN CALCIUM 20 MG TABLET PO SCH (21:00)
[2020-03-13] MEDS: PANTOPRAZOLE SODIUM 40 MG in NORMAL SALINE 100 ML IV SCH (03:03)
[2020-03-13] MEDS: METHYLPREDNISOLONE SOD SUCC/PF 125 MG/2 ML VIAL IV SCH ×2 (03:25→10:30)
[2020-03-13] MEDS: CIPROFLOXACIN IN 5 % DEXTROSE 200 MG/100 ML BAG IV SCH (03:27)
[2020-03-13 06:45] LABS: Hematocrit 26.4 % (37.0-47.0); Hemoglobin 8.8 gm/dL (12.5-16.0); Mean Cell Volume 97.1 fl (78-100); Mean Corpuscular Hemoglobin 32.4 pg (27-31); Mean Corpuscular Hgb Conc 33.3 g/dl (32-36); Mean Platelet Volume 11.8 fl (8-12.5); NRBC# 0.2 k/mm3 (0-1); Neutrophil % 89.5 % (42-75.0); Red Blood Count 2.72 M/mm3 (4.2-5.4); Red Cell Distribution Width 19.7 % (11.5-14.0); White Blood Count 8.9 K/mm3 (4.0-10.5)
[2020-03-13 06:49] LABS: Platelet Count 86 K/mm3 (150-450)
[2020-03-13] MEDS: metroNIDAZOLE/SODIUM CHLORIDE 500 MG/100 ML BAG IV SCH (07:10)
[2020-03-13] MEDS: LEVOTHYROXINE SODIUM 25 MCG TABLET PO SCH (07:10)
[2020-03-13 07:13] LABS: Anion Gap 12.6 mmol/L (6.8-13.8); BUN/Creatinine Ratio 18.9 (9.0-21.6); Bilirubin, Total 0.5 mg/dL (0.0-1.1); Ca. Corrected For Albumin 8.2 mg/dL (8.4-10.2); Calcium * 7.7 mg/dL (7.9-10.9); Carbon Dioxide 25.7 mmol/L (24-32.6); Potassium 4.3 mmol/L (3.4-4.6)
[2020-03-13] MEDS ORDERED: FUROSEMIDE 20 MG TABLET PO SCH (09:00)
[2020-03-13] MEDS ORDERED: FOLIC ACID 1 MG TABLET PO SCH (09:00)
[2020-03-13] MEDS ORDERED: CHOLECALCIFEROL 1,000 UNIT CAPSULE PO SCH (09:00)
[2020-03-13] MEDS ORDERED: LISINOPRIL 10 MG TABLET PO SCH (09:00)
[2020-03-13] MEDS: CARVEDILOL 3.125 MG TABLET PO SCH (10:29)
[2020-03-13] MEDS: SERTRALINE HCL 50 MG TABLET PO SCH (10:30)
--- NOTE | 2020-03-13 11:16 | DS ---
Transfer Discharge Summary - Diagnosis(s)/Problems (1) Lower GI bleed Problem: Acute (2) Alcoholism Problem: Chronic (3) Current every day smoker Problem: Chronic (4) Hypothyroidism (acquired) Problem: Chronic (5) Peripheral arterial disease Problem: Chronic (6) CAD (coronary artery disease) Problem: Chronic (7) Elevated ETOH level Problem: Acute (8) Nicotine addiction Problem: Chronic (9) Dehydration, moderate Problem: Acute (10) Anemia Problem: Acute (11) Acute hemorrhagic colitis Problem: Acute - Course Description of Stay: 59-year-old female admitted for lower GI bleeding, acute colitis, hemorrhagic anemia, possible alcohol withdrawal, and dehydration was evaluated at bedside was found to be afebrile and in no acute distress. Patient appears comfortable but has ongoing lower GI bleeding and tenderness to palpation of her lower abdominal quadrants. Abdominal CT on admission revealed possible colitis so patient was started on IV metronidazole and she was transfused 2 units of PRBC after admission. Her hemoglobin initially went up to 9.2 but a repeat of the lab showed a drop to 8.8 causing high suspicion of ongoing GI bleed. Patient has an extensive cardiac history that consist of coronary artery disease old MIs and placement of multiple stents and routinely takes aspirin and Plavix. It is very possible that these medications played a role in her GI bleeding, therefore the medications were held since admission. Labs this morning demonstrate worsening of her transaminitis with enzyme levels much higher than her baseline. Patient has a long history with alcohol abuse and admits to ingestion of alcohol shortly before admission so this might explain the liver injury but the extent of the rise in enzymes is concerning for acute hepatic failure. She has not had any seizures or tremors from alcohol withdrawal but we will continue to monitor. Given her ongoing lower GI bleeding and the fact that we do not have a surgery service available here [facility], Dr. Fonseca at [facility] was contacted and the case was thoroughly discussed and he subsequently accepted for the patient to be transferred to his service for a colonoscopy and/or possible surgical intervention to stop the bleeding. Therefore all necessary documents will be faxed over to [facility] in an effort to transfer the patient. Procedures Performed: none - Results and Findings Results and Findings: Laboratory Results - last 24 hr 03/12/20 03/12/20 03/12/20 08:55 14:13 20:10 WBC RBC Hgb 9.2 L Hct 28.2 L MCV MCH MCHC RDW Plt Count MPV Immature Gran % (Auto) Immature Gran # (Auto) Neutrophils % Lymphocytes % Monocytes % Eosinophils % Basophils % Nucleated RBC % Neutrophils # Lymphocytes # Monocytes # Eosinophils # Absolute Basophils Sodium Plasma Sodium Potassium Chloride Carbon Dioxide Anion Gap BUN Creatinine Est GFR (Non-Af Amer) BUN/Creatinine Ratio Random Glucose Calcium Calcium Adj for Albumin Total Bilirubin AST ALT Alkaline Phosphatase Total Protein Albumin Stool Occult Blood Positive H Blood Type A Negative Antibody Screen Negative Crossmatch See Detail 03/13/20 03/13/20 06:30 06:30 WBC 8.9 RBC 2.72 L Hgb 8.8 L Hct 26.4 L MCV 97.1 MCH 32.4 H MCHC 33.3 RDW 19.7 H Plt Count 86 L MPV 11.8 Immature Gran % (Auto) 0.70 H Immature Gran # (Auto) 0.06 H Neutrophils % 89.5 H Lymphocytes % 4.7 L Monocytes % 5.1 Eosinophils % 0.0 Basophils % 0.0 Nucleated RBC % 0.2 Neutrophils # 8.0 H Lymphocytes # 0.42 L Monocytes # 0.5 Eosinophils # 0.0 Absolute Basophils 0.0 Sodium 132 Plasma Sodium 133 Potassium 4.3 Chloride 98 Carbon Dioxide 25.7 Anion Gap 12.6 BUN 33 H Creatinine 1.75 H Est GFR (Non-Af Amer) 32 L BUN/Creatinine Ratio 18.9 Random Glucose 145 H Calcium 7.7 L Calcium Adj for Albumin 8.2 L Total Bilirubin 0.5 AST 2574 H ALT 684 H Alkaline Phosphatase 134 Total Protein 6.0 L Albumin 3.0 L Stool Occult Blood Blood Type Antibody Screen Crossmatch - Medications Medications: Active Medications Carvedilol (Coreg) 3.125 mg PO BID [facility] Stop: 04/11/20 15:01 Last Admin: 03/13/20 10:29 Dose: 3.125 mg Documented by: Cholecalciferol (Vitamin D) 2,000 unit PO DAILY [facility] Stop: 04/12/20 09:01 Last Admin: 03/13/20 10:29 Dose: 2,000 unit Documented by: Folic Acid (Folic Acid) 1 mg PO DAILY [facility] Stop: 04/12/20 09:01 Last Admin: 03/13/20 10:29 Dose: 1 mg Documented by: Furosemide (Lasix) 20 mg PO DAILY [facility] Stop: 04/12/20 09:01 Last Admin: 03/13/20 10:29 Dose: 20 mg Documented by: Pantoprazole Sodium 40 mg/ (Sodium Chloride) 100 mls @ 400 mls/hr IV Q12H [facility] Stop: 04/11/20 14:46 Last Infusion: 03/13/20 03:18 Dose: Infused Documented by: Metronidazole (Flagyl) 500 mg in 100 mls @ 100 mls/hr IV Q8H [facility]; Protocol Stop: 04/11/20 15:01 Last Infusion: 03/13/20 08:10 Dose: Infused Documented by: Ciprofloxacin/Dextrose (Cipro) 200 mg in 100 mls @ 100 mls/hr IV Q12H [facility]; Protocol Stop: 04/11/20 15:01 Last Infusion: 03/13/20 04:56 Dose: Infused Documented by: Levothyroxine Sodium (Synthroid) 25 mcg PO DAILY@0700 [facility] Stop: 04/11/20 15:01 Last Admin: 03/13/20 07:10 Dose: 25 mcg Documented by: Lisinopril (Zestril) 10 mg PO DAILY [facility] Stop: 04/12/20 09:01 Last Admin: 03/13/20 10:30 Dose: 10 mg Documented by: Methylprednisolone Sodium Succinate (Solu-Medrol (Pf)) 62.5 mg IV Q6H [facility] Stop: 04/11/20 15:01 Last Admin: 03/13/20 10:30 Dose: 62.5 mg Documented by: Nicotine (Nicoderm) 14 mg TD Q24H [facility] Stop: 04/11/20 15:01 Last Admin: 03/12/20 15:31 Dose: 14 mg Documented by: Ondansetron HCl (Zofran) 4 mg IV Q4H PRN PRN Reason: Nausea Stop: 04/11/20 14:51 Last Admin: 03/12/20 23:16 Dose: 4 mg Documented by: Rosuvastatin Calcium (Crestor) 40 mg PO HS [facility] Stop: 04/11/20 21:01 Last Admin: 03/12/20 20:44 Dose: 40 mg Documented by: Sertraline HCl (Zoloft) 50 mg PO DAILY [facility] Stop: 04/11/20 15:01 Last Admin: 03/13/20 10:30 Dose: 50 mg Documented by: Discontinued Medications Carvedilol (Coreg) 3.125 mg PO BID [facility] Stop: 04/11/20 15:01 Last Admin: 03/12/20 16:03 Dose: Not Given Documented by: Diatrizoate Meglum/Diatrizoate Sod (Gastrografin Solution) 60 ml PO ONCE ONE Stop: 03/12/20 09:55 Last Admin: 03/12/20 10:15 Dose: 60 ml Documented by: Hydromorphone HCl (Dilaudid) 0.5 mg IV ONCE ONE Stop: 03/12/20 11:56 Last Admin: 03/12/20 11:59 Dose: 0.5 mg Documented by: Pantoprazole Sodium (Protonix Iv Er Piggyback) 40 mg in 100 mls @ 400 mls/hr IV ONCE ONE Stop: 03/12/20 09:01 Last Infusion: 03/12/20 10:09 Dose: Infused Documented by: Sodium Chloride (Sodium Chloride 0.9%) 1,000 mls @ 200 mls/hr IV .Q5H ONE Stop: 03/12/20 14:16 Last Infusion: 03/12/20 10:35 Dose: 0 mls/hr Documented by: Methylprednisolone Sodium Succinate (Solu-Medrol) 60 mg IV Q6H [facility] Stop: 04/11/20 15:01 Last Admin: 03/12/20 16:03 Dose: Not Given Documented by: Ondansetron HCl (Zofran) 4 mg IV ONCE ONE Stop: 03/12/20 09:23 Last Admin: 03/12/20 09:26 Dose: 4 mg Documented by: - Disposition Disposition: Short Term Hospital Inpatient Condition: Stable Discharge Date: 03/13/20 Discharge Time: 11:19
[2020-03-13] MEDS ORDERED: DENTAL ADHESIVE 39 APPL TUBE TP SCH (12:00)
[2020-03-13 13:02] VITALS: BP 119/76
== END 2020-03-13 12:30 | disposition short-term general hospital (02) | DRG 391 ==
LOC: MS 08:38 → ER 08:38 → MS 14:09
PROVIDERS: ADMIT Family Medicine; ATTEND Family Medicine
CPT/HCPCS: 36415; 74019; 74020; 74177; 80053; 81001; 82150; 82272; 83690; 85014; 85018; 85025; 85610; 85730; 86850; 96361; 96365; 96366; 96367; 96375; 96376; 99285; G0378; J2405; P9016; Q9963; Q9967